=== PATIENT | male | born 1980 | race Two or more races ===

== ENCOUNTER 2016-09-08 09:25 | Emergency (ER) | payer OTHER ==
[~2016-09-08] VITALS: Ht 180.3 cm; Wt 84.5 kg
[~2016-09-08 09:25] MED LIST: MOTRIN800 MG PO; PREDNISONE50 MG PO; REGLAN10 MG PO
[2016-09-08 11:20] VITALS: BP 107/65
== END 2016-09-08 11:21 | disposition home or self-care (01) ==
LOC: EME 09:25
DX: G43.909 Migraine, unspecified, not intractable, without status migrainosus (principal)
CPT/HCPCS: 99281; 99285; J1200; J1885; J2765; J7030

== ENCOUNTER 2017-09-01 03:14 | Emergency (ER) | payer OTHER ==
[~2017-09-01] VITALS: Ht 180.3 cm; Wt 86.5 kg
[2017-09-01 03:19] VITALS: BP 122/80
== END 2017-09-01 04:00 | disposition left against medical advice (07) ==
LOC: EME 03:14
DX: M25.551 Pain in right hip (principal); Z53.21 Procedure and treatment not carried out due to patient leaving prior to being seen by health care provider

== ENCOUNTER 2017-09-30 11:08 | Emergency (ER) | payer OTHER ==
[~2017-09-30] VITALS: Ht 180.3 cm; Wt 83.0 kg
[2017-09-30 15:39] VITALS: BP 135/74
== END 2017-09-30 15:40 | disposition home or self-care (01) ==
LOC: EME 11:08
DX: S39.012A Strain of muscle, fascia and tendon of lower back, initial encounter (principal); W18.40XA Slipping, tripping and stumbling without falling, unspecified, initial encounter; Z98.890 Other specified postprocedural states
CPT/HCPCS: 72100; 99281; 99284